=== PATIENT | female | born 1960 | race Caucasian/White ===

== ENCOUNTER 2019-03-30 12:37 | Emergency (ER) | payer SELFPAY ==
[~2019-03-30] VITALS: Ht 154.9 cm; Wt 72.6 kg
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
[2019-03-30] MEDS ORDERED: NS IV 1000 ML 1,000 ML IV SCH (13:30)
[2019-03-30] MEDS ORDERED: cefTRIAXone FOR IV USE 2,000 MG in WATER (STERILE) FOR INJECTION 20 ML IV ONE (13:30)
[2019-03-30 13:31] LABS: BASOPHILS # (AUTO) 0.1 10^3/uL (0.0-0.1); BASOPHILS % (AUTO) 1 % (0-10); EOSINOPHILS # (AUTO) 0.7 10^3/uL (0.0-0.3); EOSINOPHILS % (AUTO) 9 % (0-10); HEMATOCRIT 37 % (35-52); HEMOGLOBIN 12.1 G/DL (11.5-16.0); LYMPHOCYTES # (AUTO) 1.9 X 10^3 (1.0-4.0); LYMPHOCYTES % (AUTO) 25 % (12-44); MEAN CORPUSCULAR HEMOGLOBIN 30 PG (25-34); MEAN CORPUSCULAR HGB CONC 32 G/DL (32-36); MEAN CORPUSCULAR VOLUME 91 FL (80-99); MEAN PLATELET VOLUME 11.1 FL (7.4-10.4); MONOCYTES # (AUTO) 0.6 X 10^3 (0.0-1.0); MONOCYTES % (AUTO) 8 % (0-12); NEUTROPHILS # (AUTO) 4.3 X 10^3 (1.8-7.8); NEUTROPHILS % (AUTO) 57 % (42-75); PLATELET COUNT 330 10^3/uL (130-400); RED CELL DISTRIBUTION WIDTH 13.6 % (10.0-14.5); WHITE BLOOD COUNT 7.5 10^3/uL (4.3-11.0)
--- NOTE | 2019-03-30 13:43 | Diagnostic Imaging Report ---
INDICATION: Redness and swelling. Two views were obtained. FINDINGS: Alignment is normal. No fracture or dislocation. Soft tissues are unremarkable. IMPRESSION: No focal abnormality in the right forearm. Dictated by: Dictated on workstation # [id number]
[2019-03-30] MEDS ORDERED: CEPH500T PO (14:06)
[2019-03-30] MEDS ORDERED: RX-CEPHALEXIN (KEFLEX) 250 MG CAP PPK#4 PO ONE (14:14)
[2019-03-30 14:23] LABS: ERYTHROCYTE SEDIMENTATION RATE 45 MM/HR (0-30)
[2019-03-30] MEDS ORDERED: RX-CEPHALEXIN (KEFLEX) 250 MG CAP PPK#4 PO STA (14:29)
[2019-03-30 14:48] VITALS: BP 149/88
== END 2019-03-30 14:50 | disposition home or self-care (01) ==
LOC: ER 12:41
DX: L03.113 Cellulitis of right upper limb (principal); F41.9 Anxiety disorder, unspecified; F17.200 Nicotine dependence, unspecified, uncomplicated; Z88.2 Allergy status to sulfonamides
CPT/HCPCS: 36415; 73090; 83605; 85025; 85652; 87040; 87070; 87077; 87186; 87205; 96374